=== PATIENT | female | born 1985 | race African-American/Black ===

== ENCOUNTER 2022-10-29 07:38 | Inpatient (IN) | payer OTHER ==
[2022-10-29] MEDS ORDERED: ELECTROLYTE-148 SOLN 500 ML IV SCH ×2 (08:00→09:00)
[2022-10-29] MEDS ORDERED: CITRIC ACID/SODIUM CITRATE 30 ML UNIT-DOSE CUP PO ONE (08:00)
[2022-10-29 09:19] VITALS: BMI 30.9
[2022-10-29] MEDS ORDERED: ACETAMINOPHEN 325 MG TABLET (FP) PO PRN (09:42)
[2022-10-29] MEDS ORDERED: ONDANSETRON 4 MG/2 ML VIAL IVPUSH PRN (09:42)
[2022-10-29] MEDS ORDERED: IBUPROFEN 600 MG TABLET (FP) PO PRN (09:42)
[2022-10-29] MEDS ORDERED: morphine SULFATE/PF 1 MG/2 ML (2cc Syringe - QUVA) EP ONE (09:42)
[2022-10-29] MEDS ORDERED: morphine SULFATE (PF) 1 MG/2 ML SYRINGE ONE (10:51)
[2022-10-29] MEDS ORDERED: SODIUM CHLORIDE 0.9% P/F 10 ML VIAL IJ ONE (10:52)
[2022-10-29] MEDS ORDERED: ceFAZolin SODIUM 1 GM VIAL ONE (10:52)
[2022-10-29] MEDS ORDERED: METHYLERGONOVINE MALEATE 0.2 MG/1 ML AMP IM PRN (10:52)
[2022-10-29] MEDS ORDERED: PHENYLEPHRINE HCL 10 MG/1 ML SINGLE DOSE VIAL ONE (11:05)
[2022-10-29] MEDS ORDERED: OXYTOCIN 10 UNITS/ML VIAL ONE ×2 (11:17→12:00)
[2022-10-29] MEDS ORDERED: ONDANSETRON 4 MG/2 ML VIAL ONE (11:28)
[2022-10-29] MEDS ORDERED: OXYTOCIN 20 UNITS in 0.9% NS 20 UNIT/1,000 ML INFUS.BAG IV ONE (12:57)
[2022-10-29] MEDS: OXYTOCIN 20 UNITS in 0.9% NS 20 UNIT/1,000 ML INFUS.BAG IV SCH ×3 (13:00→23:18)
[2022-10-29] MEDS: ACETAMINOPHEN 1000 MG/100 ML BAG IVPB SCH ×3 (13:31→23:17)
[2022-10-29] MEDS: IBUPROFEN 800 MG/8 ML IJ IVPB SCH ×2 (13:32→17:32)
[2022-10-29] MEDS ORDERED: oxyCODONE HCL 5 MG TABLET PO PRN ×2 (22:52)
[2022-10-30] MEDS: IBUPROFEN 800 MG/8 ML IJ IVPB SCH ×2 (01:49→07:53)
[2022-10-30] MEDS: ACETAMINOPHEN 1000 MG/100 ML BAG IVPB SCH (05:32)
[2022-10-30 08:25] LABS: BASO % 0.2 % (0-2.0); EOS % 0.5 % (0-4.5); HEMATOCRIT 31.9 % (32.4-45.2); HEMOGLOBIN 11.1 GM/dL (10.7-15.3); LYMPH % 17.1 % (8-40); MCHC 34.7 g/dl (32.0-36.0); MEAN CELL VOLUME 83.8 fl (80-96); MONO % 7.2 % (3.8-10.2); PLATELET COUNT 174 10^3/uL (134-434); RBC 3.81 M/mm3 (3.60-5.2); RDW 15.6 % (11.6-15.6); WHITE BLOOD COUNT 7.5 K/mm3 (4.0-10.0)
[2022-10-30 09:39] LABS: HIV INTERPRETATION NEGATIVE (NEGATIVE)
[2022-10-30] MEDS ORDERED: ACETAMINOPHEN 325 MG TABLET (FP) PO SCH (10:30)
[2022-10-30] MEDS ORDERED: IBUPROFEN 600 MG TABLET (FP) PO SCH (10:30)
[2022-10-30] MEDS ORDERED: BISACODYL 10 MG SUPP.RECT RC PRN (10:52)
[2022-10-30] MEDS: ACETAMINOPHEN 325 MG TABLET (FP) PO SCH ×2 (12:37→20:40)
[2022-10-30] MEDS: IBUPROFEN 600 MG TABLET (FP) PO SCH ×2 (14:34→17:41)
[2022-10-30] MEDS: SIMETHICONE 80 MG TAB.CHEW (FP) PO PRN (20:40)
[2022-10-31] MEDS: ACETAMINOPHEN 325 MG TABLET (FP) PO SCH ×4 (01:03→19:00)
[2022-10-31] MEDS: IBUPROFEN 600 MG TABLET (FP) PO SCH ×4 (03:44→19:00)
[2022-10-31] MEDS: SIMETHICONE 80 MG TAB.CHEW (FP) PO PRN (07:45)
[2022-11-01] MEDS: SIMETHICONE 80 MG TAB.CHEW (FP) PO PRN (00:03)
[2022-11-01] MEDS: ACETAMINOPHEN 325 MG TABLET (FP) PO SCH ×3 (00:03→11:54)
[2022-11-01] MEDS: IBUPROFEN 600 MG TABLET (FP) PO SCH ×3 (00:03→11:53)
[2022-11-01 08:51] VITALS: BP 131/87; PULSE 90; RESP 16; TEMP 98.1
== END 2022-11-01 12:35 | disposition home or self-care (01) | DRG 540 ==
LOC: JLDR 07:38 → J3W 13:15
PROVIDERS: ADMIT Obstetrics & Gynecology; ATTEND Obstetrics & Gynecology
PROC: 10D00Z1 Extraction of Products of Conception, Low, Open Approach (ICD-10-PCS; principal; 2022-10-29)
DX: O34.211 Maternal care for low transverse scar from previous cesarean delivery (principal); N85.8 Other specified noninflammatory disorders of uterus; O13.4 Gestational [pregnancy-induced] hypertension without significant proteinuria, complicating childbirth; O24.429 Gestational diabetes mellitus in childbirth, unspecified control; O34.13 Maternal care for benign tumor of corpus uteri, third trimester; Z3A.37 37 weeks gestation of pregnancy; Z37.0 Single live birth
CPT/HCPCS: 36415; 59025; 80053; 82570; 82962; 84156; 85025; 85610; 85730; 86780; 86850; 86900; 86901; 87389; 88307-TC; 94010; C9803-CS; G0463-25; U0003; U0005